=== PATIENT | male | born 1980 | race Caucasian/White ===

== ENCOUNTER 2018-08-30 08:33 | Inpatient (IN) ==
[2018-08-30] MEDS ORDERED: SODIUM CHLORIDE 0.9% 1000ML 500 ML IV ONE (08:47)
[2018-08-30] MEDS ORDERED: CLINDAMYCIN 900 MG in DEXTROSE 5% 50 ML IV ONE (08:47)
[2018-08-30 09:05] LABS: Basophils # (auto) 0.03 K/uL (0-0.2); Basophils % (auto) 0.3 %; Eosinophils # (auto) 0.38 K/uL (0-0.5); Eosinophils % (auto) 4.2 %; Hemoglobin 14.3 g/dL (14.0-18.0); Immature Granulocytes # (auto) 0.02 K/uL (0.00-0.02); Immature Granulocytes % (auto) 0.2 %; Lymphocytes # (auto) 2.49 K/uL (1.2-3.4); Lymphocytes % (auto) 27.7 %; Mean Corpuscular Hgb Conc 36.7 g/dL (32-36); Mean Corpuscular Volume 88.8 fL (80-100); Mean Platelet Volume 8.6 fL (7.4-10.4); Monocytes # (auto) 0.92 K/uL (0.11-0.59); Monocytes % (auto) 10.2 %; Neutrophils # (auto) 5.15 K/uL (1.4-6.5); Neutrophils % (auto) 57.4 %; Platelet Count 241 K/uL (130-400); RDW Coefficient of Variation 12.4 % (11.5-14.5); RDW Standard Deviation 39.5 fL (36.4-46.3); Red Blood Count 4.39 M/uL (4.7-6.1); White Blood Count 8.99 K/uL (4.8-10.8)
[2018-08-30 09:19] LABS: BUN Creatinine Ratio 11.5 (10-20); Calcium 8.9 mg/dl (8.5-10.1); Creatinine Clr Calc Pharmacy 110.1 ml/min; Est GFR (African American) 106.6; Est GFR (Non-African American) 91.9; Potassium 4.1 mmol/L (3.5-5.1)
[2018-08-30] MEDS ORDERED: IOVERSOL 100ml IV PRN (09:46)
--- NOTE | 2018-08-30 10:18 | CT Scan Report ---
CT facial bones w con HISTORY: 38 years-old Male L dental abscess/facial cellulitis acute left-sided facial pain and swell ing COMPARISON: None available TECHNIQUE: Multiple axial CT images of the facial bones were obtained following the intravenous admin istration of 94 mL Optiray 320 IV contrast. A dose lowering technique was used consistent with the pr incipals of SANDIE. FINDINGS: Dental amalgam hardware streak artifact limits dilation of the surrounding tissues. There is a periph erally enhancing multiloculated fluid collection adjacent to the left maxilla measuring 2.2 x 2.3 x 2 .6 cm in AP, transverse and craniocaudal dimensions respectively, image 233 series 4. Mild subcutaneo us stranding about the left maxillary distribution is also noted. No opaque foreign body. The bilater al carotid, submandibular and sublingual glands appear unremarkable. Thyroid is not imaged. The vascu lar structures about the neck appear to be unremarkable. No adenopathy by CT size criteria. 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 Mastoid air cells and middle ear cavities are clear. Mild mucosal thickening about the ethmoid air ce lls. No acute facial bone or calvarial fracture. Mild degenerative changes about the imaged cervical spine with mild disc space narrowing and posterior osteophytic spurring at C5-C6. Multiple dental car ies. Large periapical cyst about the right maxillary first bicuspid with adjacent cortical erosion. L arge dental caries noted about the left maxillary first molar. IMPRESSION: 1. Multifocal odontogenic disease as above includes large caries about the left first maxillary molar . 2. Mild to moderate cellulitis changes about the left maxillary distribution with adjacent multilocul ated abscess measuring up to 2.6 cm. 3. 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 The above report was generated using voice recognition software. It may contain grammatical, syntax o r spelling errors. Electronically signed by: Jose Antonio Fontanez M.D. 08/30/2018 10:17 AM
--- NOTE | 2018-08-30 10:36 | Emergency Department Note ---
History of Present Illness General Chief complaint: Dental/Oral Stated complaint: FACE SWELLING FROM TOOTH ABCESS Time Seen by Provider: 08/30/18 08:38 History of Present Illness Maximum Pain Intensity: 3 38-year-old male who presents to emergency department for evaluation of a dental/facial infection. The patient reports that he has been dealing with an infection for the past 1.5 to 2 weeks. He was initially treated with Augmentin antibiotics without any significant relief of the swelling. The patient reports that when he completed his Augmentin on Thursday, the swelling progressively worsened. He was provided a prescription for clindamycin by an another physician yesterday, and has taken clindamycin without relief of symptoms. He denies headache, sinus congestion, postnasal drip or significant facial pain. He does report chills, but has not checked his temperature at home. He rates his discomfort a 3 out of 10 on initial exam. Home Medications Home Medications Medication Instructions Recorded Confirmed Type clindamycin HCl 300 mg PO Q8H 08/30/18 08/30/18 History naproxen sodium [Aleve] 220 mg PO UD PRN 08/30/18 08/30/18 History Allergies Allergy/AdvReac Type Severity Reaction Status Date / Time No Known Allergies Allergy Unverified 08/30/18 09:38 Past Med/Surg History Medical History History of torn meniscus of left knee History of disruption of medial collateral ligament Obesity (BMI 30.0-34.9) Tobacco use Dental abscess (Acute) Surgical History History of arthroscopy of left knee Family History Other Hypertension Social History Preferred Language: Kittitian Communication Ability: Effective Offset Machine Operator Required: No Beliefs That Will Affect Care: None Current Living Situation: Spouse current occupational status: employed 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 [employer] Other Information That Helps Us Care for You: No Feels Safe at Home: Yes Smoking Status: Current every day smoker Tobacco Type: cigarettes Do You Dip or Chew Tobacco: No Second Hand Exposure: No Tobacco Cessation Education Requested by Patient: No Hx Alcohol Use: Yes (occasionally) Alcohol type: hard liquor Alcohol Intake Frequency Comment: 1-3 drinks weekly Hx Substance Use: Yes substance use type: marijuana Last Used Substance: Hours (ago) Review of Systems 10 system review was performed and was negative except for pertinent positives and negatives as indicated in history of present illness Physical Exam Vital Signs Vital Signs - 24 hr 08/30/18 08:38 08/30/18 09:56 Temperature 36.5 C Temperature Source Oral Sepsis Recent Fever Within 48 Hours No Sepsis New/Unexplained Change in Mental Status No Sepsis Action Taken by Nursing No Action Required Pulse Rate 84 Pulse Rate [Left Finger] 60 Respiratory Rate 18 18 Respiratory Effort / Characteristics Non-Labored Spontaneous Respiratory Depth Normal Respiratory Pattern Regular Blood Pressure 126/93 Blood Pressure [Left Arm] 121/72 Blood Pressure Mean 104 Blood Pressure Mean [Left Arm] 88 Blood Pressure Position Sitting Pulse Oximetry 97 96 Oxygen Delivery Method Room Air Room Air CONSTITUTIONAL: Healthy and well nourished. Alert and oriented X 3. Patient does not appear in any acute distress. HEENT: Patient has notable edema of the left facial region and inferior orbit. He has notable induration and tenderness to palpation over this entire region. Pupils equal, round and reactive. EOMs intact without evidence for entrapment o r discomfort. Examination of the oropharynx shows a badly eroded left maxillary molar. No obvious gingival erythema, fluctuance or pointing noted. No clinical evidence for Kenny's angina or retropharyngeal abscess. NECK: Full active range of motion without discomfort. LYMPHATICS: No cervical chain adenopathy. RESPIRATORY: Clear to auscultation bilaterally with no wheezing, crackles, rhonchi or stridor. CARDIOVASCULAR: Regular rate and rhythm with no murmurs, rubs or gallops. GASTROINTESTINAL: Bowel sounds present in all quadrants. Soft and nontender to palpation without hepatosplenomegaly. MUSCULOSKELETAL: Full range of motion of all joints without discomfort. INTEGUMENTARY: No rash or other significant dermatologic conditions noted. HEMATOLOGIC: No ecchymosis or petechiae. PSYCHIATRIC: Positive affect. NEUROLOGIC: Cranial nerves II-XII grossly intact. No focal neurologic deficits noted. Facial sensations are intact. Course Patient history and physical exam were performed. Nurse's notes were reviewed. Vital signs were reviewed and were normal. Given that the patient's symptoms have progressively worsened, IV access was established, and labs were drawn. The patient was administered clindamycin 900 mg IV infusion, along with a normal saline 1 L bolus. Labs were reviewed to show a mild leukocytosis with left sh ift and bandemia. Remaining electrolytes were otherwise normal. CT of the face with IV contrast shows evidence for a 2.6 cm abscess as discussed in the taker off drying kiln report. The case was further discussed with Dr. Hankins, ED attending physician, who recommended contacting Dr. Mancuso, maxillofacial surgeon circulation representative. Dr. Mancuso recommended hospitalist evaluation, and he would consult with his service to determine if I&D procedure was warranted once he reviews CT imaging. The case was then discussed with the [facility] hospitalist service. Please see dictations for further treatment and final disposition. Administered Medications Clindamycin Phosphate 900 mg/ (Dextrose) 56 mls @ 112 mls/hr IV Q8H JESSICA; Protocol Stop: 09/09/18 07:59 Last Infusion: 08/30/18 18:02 Dose: 0 mls/hr Documented by: [id number] Admin: 08/30/18 17:15 Dose: 112 mls/hr Documented by: [id number] Sodium Chloride (Nss 1000ml) 1,000 mls @ 80 mls/hr IV .[id number] JESSICA Stop: 09/29/18 12:13 Last Admin: 08/30/18 14:01 Dose: 80 mls/hr Documented by: [id number] Ketorolac Tromethamine (Toradol) 30 mg IV Q6H PRN PRN Reason: Pain Stop: 09/04/18 12:55 Last Admin: 08/30/18 13:12 Dose: 30 mg Documented by: [id number] Oxycodone/Acetaminophen (Percocet 7.5/325mg) 1 tab PO Q4H PRN PRN Reason: Moderate Pain Stop: 09/13/18 16:15 Last Admin: 08/30/18 16:30 Dose: 1 tab Documented by: [id number] Discontinued Medications Clindamycin Phosphate 900 mg/ (Dextrose) 56 mls @ 112 mls/hr IV ONE ONE Stop: 08/30/18 09:16 Last Infusion: 08/30/18 09:32 Dose: 0 mls/hr Documented by: [id number] Admin: 08/30/18 09:10 Dose: 112 mls/hr Documented by: [id number] Sodium Chloride (Nss 1000ml) 500 mls @ 999 mls/hr IV .Q31M ONE Stop: 08/30/18 09:17 Last Infusion: 08/30/18 09:33 Dose: 0 mls/hr Documented by: [id number] Admin: 08/30/18 09:10 Dose: 999 mls/hr Documented by: [id number] Ioversol (Optiray 320 100ml) 94 ml IV ONCE PRN PRN Reason: Interaction Checking Stop: 09/03/18 09:45 Last Admin: 08/30/18 09:46 Dose: 94 ml Documented by: [id number] Medical Decision Making Medical Records Attestation: I reviewed the patient's medical records. Home Medications Current Medication List: was personally reviewed by me Laboratory Data Attestation: I reviewed the patient's lab results. Result diagrams: 08/30/18 08:55 08/30/18 08:55 Lab Results 08/30/18 08/30/18 Range/Units 08:55 08:55 WBC 8.99 (4.8-10.8) K/uL RBC 4.39 L (4.7-6.1) M/uL Hgb 14.3 (14.0-18.0) g/dL Hct 39.0 L (42-52) % MCV 88.8 (80-100) fL MCH 32.6 (25-34) pg MCHC 36.7 H (32-36) g/dL RDW Std Deviation 39.5 (36.4-46.3) fL RDW Coeff of Alissa 12.4 (11.5-14.5) % Plt Count 241 (130-400) K/uL MPV 8.6 (7.4-10.4) fL Immature Gran % (Auto) 0.2 % Neut % (Auto) 57.4 % Lymph % (Auto) 27.7 % Porter % (Auto) 10.2 % Eos % (Auto) 4.2 % Baso % (Auto) 0.3 % Immature Gran # (Auto) 0.02 (0.00-0.02) K/uL Neut # (Auto) 5.15 (1.4-6.5) K/uL Lymph # (Auto) 2.49 (1.2-3.4) K/uL Porter # (Auto) 0.92 H (0.11-0.59) K/uL Eos # (Auto) 0.38 (0-0.5) K/uL Baso # (Auto) 0.03 (0-0.2) K/uL Sodium 140 (136-145) mmol/L Potassium 4.1 (3.5-5.1) mmol/L Chloride 109 H (98-107) mmol/L Carbon Dioxide 24 (21-32) mmol/L Anion Gap 7.0 (3-11) BUN 12 (7-18) mg/dl Creatinine 1.04 (0.6-1.4) mg/dl Est Cr Clr Drug Dosing 110.1 ml/min Est GFR ( Amer) 106.6 Est GFR (Non-Af Amer) 91.9 BUN/Creatinine Ratio 11.5 (10-20) Glucose 95 (70-99) mg/dl Calcium 8.9 (8.5-10.1) mg/dl Imaging Data Attestation: I personally reviewed and interpreted this imaging study as follows: My Impression: CT of the facial bones with IV contrast shows evidence for a left subadjacent maxillary abscess as discussed in the following radiologist report, which was also reviewed. Radiologist's Impression: CT facial bones w con HISTORY: 38 years-old Male L dental abscess/facial cellulitis acute left-sided facial pain and swelling COMPARISON: None available TECHNIQUE: Multiple axial CT images of the facial bones were obtained following the intravenous administration of 94 mL Optiray 320 IV contrast. A dose lowering technique was used consistent with the principals of SANDIE. FINDINGS: Dental amalgam hardware streak artifact limits dilation of the surrounding tissues. There is a peripherally enhancing multiloculated fluid collection adjacent to the left maxilla measuring 2.2 x 2.3 x 2.6 cm in AP, transverse and craniocaudal dimensions respectively, image 233 series 4. Mild subcutaneous stranding about the left maxillary distribution is also noted. No opaque foreign body. The bilateral carotid, submandibular and sublingual glands appear unremarkable. Thyroid is not imaged. The vascular structures about the neck appear to be unremarkable. No adenopathy by CT size criteria. 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 Mastoid air cells and middle ear cavities are clear. Mild mucosal thickening about the ethmoid air cells. No acute facial bone or calvarial fracture. Mild degenerative changes about the imaged cervical spine with mild disc space narrowing and posterior osteophytic spurring at C5-C6. Multiple dental caries. Large periapical cyst about the right maxillary first bicuspid with adjacent cortical erosion. Large dental caries noted about the left maxillary first molar. IMPRESSION: 1. Multifocal odontogenic disease as above includes large caries about the left first maxillary molar. 2. Mild to moderate cellulitis changes about the left maxillary distribution with adjacent multiloculated abscess measuring up to 2.6 cm. 3. 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 Blood Pressure Blood Pressure Findings: Normal blood pressure MDM Narrative Patient does have a sizable abscess formation it has not resolved with initial Augmentin antibiotics, and now approximately 36 hours of clindamycin antibiotics. Because the patient has failed outpatient management, I did feel that maxillofacial consultation was warranted. Impression & Plan Dental abscess Discharge Plan Visit Data *Final* Discharge Date/Time: 08/30/18 11:46 Chief Complaint: Dental/Oral Stated Complaint: FACE SWELLING FROM TOOTH ABCESS ED Provider: Paulo Hankins ED Midlevel Provider: Vick Kamara Discharge Problem: Dental abscess Patient Disposition: Admitted As Inpatient Discharge Instructions Interventions: ED Discharge Assessment Last Done: 08/30/18 11:46
--- NOTE | 2018-08-30 10:57 | History & Physical Report ---
Date of Service August 30, 2018 Assessment & Plan (1) Dental abscess: -Admit to [facility] -We will start on clindamycin IV : Failure of outpatient antibiotics with Augmentin x10 days, has completed clindamycin 300 mg p.o. x1 day. -ENT consulted - Dr. Brewer possible drainage later today of abscess -CT face completed showing a 2.6 cm abscess in the left maxillary area -Pain controlled currently, use ibuprofen prn -Patient without leukocytosis, afebrile (2) Tobacco use: -Smoking cessation encouraged, offered nicotine patch however the patient declines. -Patient has been smoking 4 cigarettes to 1/2 pack/day, for approximately 20 years. (3) Obesity (BMI 30.0-34.9): -Diet and exercise to be encouraged upon discharge -BMI of 34.2 (4) DVT prophylaxis: - ambulatory History of Present Illness Primary Care Provider: NO PCP This is a 38 yo male withPMHx of tobacco use x20 years, obesity with a BMI of 34.2 and history of left knee surgery for ACL and MCL tears. Patient presents with a dental abscess which is been ongoing for at least 2 weeks. Patient states that he broke left upper molar off approximately 20 years ago, since then he has had little to no problems with it. Patient did complete one course of antibiotics several years ago however the pain resolved and had no subsequent problems. Patient sought out urgent care approximately 12 days ago where he was given a prescription for Augmentin x10 days and completed the course. After finishing Augmentin pain worsened, therefore patient spoke with a physician who prescribed clindamycin. Patient had 2 days in between antibiotic courses, he has only taken 1 day of clindamycin so far. Denies fevers, sweats, chills. Patient reports he is controlling pain with ibuprofen/Aleve. Pt has not had tooth pulled previously due to lack of insurance. CT of the face reveals a 2.6 cm left maxillary 1st molar abscess. ENT plans to drain the abscess today. 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[employer] Feels Safe at Home: Yes Smoking Status: Current every day smoker Hx Alcohol Use: Yes Alcohol Intake Frequency Comment: 1-3 drinks weekly Review of Systems Review of Systems: Constitutional: No fever, sweats or chills Eyes: + left eye swelling , no diplopia, no worsening or blurred vision ENT: normal hearing, no trouble swallowing, no trouble with neck mobility, + no foul taste Respiratory: No cough, sputum, dyspnea at rest or on exertion Cardiovascular: No chest pain, tightness or palpitations Abdomen: No pain, nausea, vomiting, diarrhea or constipation Musculoskeletal: No joint pain, calf pain, swelling Neurologic: No weakness, numbness/tingling, or balance problems Psychiatric: No anxiety or depression Skin: No rash or itch Physical Exam Physical Exam: General: awake, alert, no apparent distress, no fevers, chills or sweats Head: Normocephalic, atraumatic ENT: PERRL, EOMI, + left upper jaw pain, + edema, + left maxillary 1st molar broken off, mucous membranes moist Chest: Clear to auscultation, on room air, no adventitious breath sounds Cardiac: Regular rate and rhythm, no murmur, no JVD, normal peripheral pulses, good capillary refill Abdominal: NABS x 4 quadrants, soft, nontender to palpation, no rebound, guarding or tenderness Extremities: Normal inspection, no peripheral edema or erythema, calfs nontender to palpation Psych: Normal mood and affect Neuro: AAO x 3, strength intact bilaterally and related 5/5, no motor deficits, speech is clear, no peripheral sensory deficits Results & Data Vital Signs (Past 12 Hours) Vital Signs Temp Pulse Pulse Resp BP BP Pulse Ox 08/30/18 09:56 60 18 121/72 96 08/30/18 08:38 36.5 C 84 18 126/[address] facial bones w con HISTORY: 38 years-old Male L dental abscess/facial cellulitis acute left-sided facial pain and swelling COMPARISON: None available TECHNIQUE: Multiple axial CT images of the facial bones were obtained following the intravenous administration of 94 mL Optiray 320 IV contrast. A dose lowering technique was used consistent with the principals of SANDIE. FINDINGS: Dental amalgam hardware streak artifact limits dilation of the surrounding tissues. There is a peripherally enhancing multiloculated fluid collection adjacent to the left maxilla measuring 2.2 x 2.3 x 2.6 cm in AP, transverse and craniocaudal dimensions respectively, image 233 series 4. Mild subcutaneous stranding about the left maxillary distribution is also noted. No opaque foreign body. The bilateral carotid, submandibular and sublingual glands appear unremarkable. Thyroid is not imaged. The vascular structures about the neck appear to be unremarkable. No adenopathy by CT size criteria. 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 Mastoid air cells and middle ear cavities are clear. Mild mucosal thickening about the ethmoid air cells. No acute facial bone or calvarial fracture. Mild degenerative changes about the imaged cervical spine with mild disc space narrowing and posterior osteophytic spurring at C5-C6. Multiple dental caries. Large periapical cyst about the right maxillary first bicuspid with adjacent cortical erosion. Large dental caries noted about the left maxillary first molar. IMPRESSION: 1. Multifocal odontogenic disease as above includes large caries about the left first maxillary molar. 2. Mild to moderate cellulitis changes about the left maxillary distribution with adjacent multiloculated abscess measuring up to 2.6 cm. 3. 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 The above report was generated using voice recognition software. It may contain grammatical, syntax or spelling errors. Code Status & VTE Plan Code Status Full code - discussed with father at bedside Supervising Physician Co-Signing Physician Notes Patient seen and examined by me. Agree with assessment and plan done by Danette Jovel PA-C. Patient has induration and edema and tenderness around the left maxillary and left orbital area. He has left anterior cervical lymphadenopathy that is tender. He does have a left upper molar that has been previously fractured and looks extensively carious that is probably the source of the infection. There is an abscess noted on CT scan. ENT will be seeing the patient shortly. He will be treated with intravenous clindamycin. He has been admitted for further treatment.
[2018-08-30] MEDS ORDERED: ONDANSETRON INJ 2 MG/ML 2 ML VIAL IV PRN (12:14)
[2018-08-30] MEDS ORDERED: IBUPROFEN 600 MG TAB PO PRN (12:14)
[2018-08-30] MEDS ORDERED: ACETAMINOPHEN 325 MG TAB PO PRN (12:14)
[2018-08-30] MEDS: KETOROLAC 30 MG/ML VIAL IV PRN ×2 (13:12→19:58)
[2018-08-30] MEDS: SODIUM CHLORIDE 0.9% 1000ML 1,000 ML IV SCH (14:01)
--- NOTE | 2018-08-30 16:03 | Surgery Consultation ---
Date of Consultation August 30, 2018 Joaquim is 38 y/o with an infected fractured # 14 and Upper right fractured # 4. The # 14 has caused a severe left facial abscess with obliteration of the left mucobuccal fold and extending into the infraorbital area and lower lid. His PMH is N/C, No allergies or meds He failed an outpatient course of augmentin 875 x 10 days and was placed on Clindamycin w/o any resolutions of the pain and swelling. I reviewed the CT scan and agree with the findings; There is a drainable abscess upper left side as well asa fx # 14. Also--there is a fistula and gingival swelling upper right area from an fx and abscessed # 4. I will be taking Joaquim to OR tomorrow AM and extract the #4 and #14 as well as do an I&D of the acute facial abscess with a General anesthesia. We will keep him on IV antibiotics for at least 24 hours and then decide if he can be treated with oral antibiotics and outpatient follow up. I reviewed the surgery, risks=pain, swelling, infection, bleeding, need for routine dental care and follow up with me as a general dentist. Consent signed, Plan OR tomorrow AM. OK for planned GA and oral surgery procedure We will keep NPO 12 midnight Jarred Mancuso History of Present Illness Attending Physician: Erasto Leiva MD Allergies Allergy/AdvReac Type Severity Reaction Status Date / Time No Known Allergies Allergy Unverified 08/30/18 09:38 Home Medications Home Medications Medication Instructions Recorded Confirmed Type clindamycin HCl 300 mg PO Q8H 08/30/18 08/30/18 History naproxen sodium [Aleve] 220 mg PO UD PRN 08/30/18 08/30/18 History Patient History Medical History History of torn meniscus of left knee History of disruption of medial collateral ligament Obesity (BMI 30.0-34.9) Tobacco use Dental abscess Family History Other Hypertension Social History Preferred Language: Maltese Communication Ability: Effective Business Broker Required: No Beliefs That Will Affect Care: None Current Living Situation: Spouse current occupational status: employed 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[employer] Other Information That Helps Us Care for You: No Feels Safe at Home: Yes Smoking Status: Current every day smoker Tobacco Type: cigarettes Do You Dip or Chew Tobacco: No Second Hand Exposure: No Tobacco Cessation Education Requested by Patient: No Hx Alcohol Use: Yes (occasionally) Alcohol type: hard liquor Alcohol Intake Frequency Comment: 1-3 drinks weekly Hx Substance Use: Yes substance use type: marijuana Last Used Substance: Hours (ago) Results & Data Vital Signs (Past 12 Hours) Vital Signs Temp Pulse Pulse Resp BP BP Pulse Ox 08/30/18 15:41 36.5 C 63 16 119/77 96 08/30/18 12:27 36.7 C 68 16 118/84 96 08/30/18 11:38 63 18 137/81 97 08/30/18 09:56 60 18 121/72 96 08/30/18 08:38 36.5 C 84 18 126/93 97
[2018-08-30] MEDS: OXYCODONE/APAP 7.5/325MG TAB PO PRN ×2 (16:30→22:26)
[2018-08-30] MEDS: CLINDAMYCIN 900 MG in DEXTROSE 5% 50 ML IV SCH (17:15)
[2018-08-31] MEDS: CLINDAMYCIN 900 MG in DEXTROSE 5% 50 ML IV SCH ×4 (00:08→23:26)
[2018-08-31] MEDS ORDERED: MoRPHine SULFATE 2 MG/ML CARP IV STA (00:53)
[2018-08-31] MEDS ORDERED: HYDROmorphone INJ 2 MG/ML SYR/VIAL ONE (01:03)
[2018-08-31] MEDS: SODIUM CHLORIDE 0.9% 1000ML 1,000 ML IV SCH (03:25)
[2018-08-31] MEDS: KETOROLAC 30 MG/ML VIAL IV PRN ×2 (03:58→23:26)
[2018-08-31 07:25] LABS: Hematocrit (blood only) 36.7 % (42-52); Hemoglobin 13.2 g/dL (14.0-18.0); Mean Corpuscular Volume 89.1 fL (80-100); Mean Platelet Volume 8.8 fL (7.4-10.4); Platelet Count 233 K/uL (130-400); RDW Coefficient of Variation 12.4 % (11.5-14.5); RDW Standard Deviation 40.1 fL (36.4-46.3); Red Blood Count 4.12 M/uL (4.7-6.1); White Blood Count 8.91 K/uL (4.8-10.8)
[2018-08-31] MEDS: OXYCODONE/APAP 7.5/325MG TAB PO PRN ×2 (07:28→19:07)
[2018-08-31 07:52] LABS: Albumin Level 3.2 gm/dl (3.4-5.0); BUN Creatinine Ratio 11.2 (10-20); Bilirubin,Total 0.3 mg/dl (0.2-1); Calcium 8.6 mg/dl (8.5-10.1); Creatinine Clr Calc Pharmacy 115.4 ml/min; Est GFR (African American) 113.1; Est GFR (Non-African American) 97.6; Potassium 4.4 mmol/L (3.5-5.1)
[2018-08-31 07:54] LABS: Albumin Globulin Ratio 0.9 (0.9-2); Globulin 3.5 gm/dl (2.5-4.0); Total Protein 6.7 gm/dl (6.4-8.2)
[2018-08-31] MEDS ORDERED: PROPOFOL IV EMULSION 10 MG/ML 20 ML VIAL IV ONE (08:10)
[2018-08-31] MEDS ORDERED: DEXAMETHASONE SOD INJ 4 MG/ML VIAL ONE (08:10)
[2018-08-31] MEDS ORDERED: fentaNYL citrate 100 MCG/2 ML VIAL ONE (08:10)
[2018-08-31] MEDS ORDERED: LIDOCAINE HCL 2% 2 ML VIAL/AMP(20MG/ML) INFIL ONE (08:10)
[2018-08-31] MEDS ORDERED: ONDANSETRON INJ 2 MG/ML 2 ML VIAL ONE (08:10)
[2018-08-31] MEDS ORDERED: MIDAZOLAM HCL 1 MG/ML 2ML VIAL ONE (08:11)
[2018-08-31] MEDS ORDERED: CHLORHEXIDINE GLUCONATE 0.12% 480 ML ONE (09:32)
[2018-08-31] MEDS ORDERED: BUPIVACAINE/EPINEPHRINE 0.5% 1:200,000 1.8 ML CARP ONE (09:34)
--- NOTE | 2018-08-31 09:41 | Anesthesiology Consultation ---
Date of Service August 31, 2018 Assessment & Plan (1) Encounter for pre-operative examination: Chart Review Chart Review: Acceptable Risk for Surgery ASA ASA2 Proposed Anesthesia Anesthesia Type: General Risk / Benefits Reviewed With: PT / POA / Parent / Guardian, Accepts Plan and Informed Consent Obtained History Surgery Operation Date: 08/31/18 08:35 Proposed Procedures p Incision and Drainage General, Teeth #5 and #14 Extraction - Jarred Mancuso, DMD Height/Weight Height: 5 ft 7 in Weight: 98.6 kg Allergies Allergy/AdvReac Type Severity Reaction Status Date / Time No Known Allergies Allergy Unverified 08/30/18 09:38 Medications Home Medications Medication Instructions Recorded Confirmed Last Taken clindamycin HCl 300 mg PO Q8H 08/30/18 08/30/18 08/30/18 naproxen sodium [Aleve] 220 mg PO UD PRN 08/30/18 08/30/18 Unknown Active Medications Generic Name Dose Route Start Last Admin Trade Name Freq PRN Reason Stop Dose Admin Clindamycin Phosphate 900 mg/ 56 mls @ 112 mls/hr 08/30/18 16:00 08/31/18 08:38 Dextrose IV 09/09/18 07:59 Infused Q8H JESSICA Infusion Protocol Sodium Chloride 1,000 mls @ 80 mls/hr 08/30/18 12:14 08/31/18 03:25 Nss 1000ml IV 09/29/18 12:13 80 mls/hr .[id number] JESSICA Administration Ibuprofen 600 mg 08/30/18 12:14 08/30/18 19:01 Motrin PO 09/29/18 12:13 600 mg Q6H PRN Administration Pain Ketorolac Tromethamine 30 mg 08/30/18 12:56 08/31/18 03:58 Toradol IV 09/04/18 12:55 30 mg Q6H PRN Administration Pain Oxycodone/Acetaminophen 1 tab 08/30/18 16:16 08/31/18 07:28 Percocet 7.5/325mg PO 09/13/18 16:15 1 tab Q4H PRN Administration Moderate Pain NPO Date Last Intake of Fluids: 08/30/18 Time Last Intake of Fluids: 23:59 Date Last Intake of Solids: 08/30/18 Time Last Intake of Solids: 23:59 Past Medical History Medical History History of torn meniscus of left knee History of disruption of medial collateral ligament Obesity (BMI 30.0-34.9) Tobacco use Dental abscess (Acute) Exercise / Class Metabolic Activity II 4-5 Yardwork/Stairs/Walk up hill Past Family History Family History Other Hypertension Past Surgical History Surgical History History of arthroscopy of left knee Past Anesthesia History No Hx of Anesthesia Complications and No Family Hx of Anesthesia Complications History of PONV No Hx of PONV and No Hx of Motion Sickness Social History Smoking Status: Current every day smoker tobacco type: cigarettes Do You Dip or Chew Tobacco: No Hx Alcohol Use: Yes (occasionally) Alcohol type: hard liquor alcohol intake frequency: a few times a month Hx Substance Use: Yes substance use type: marijuana Last Used Substance: Hours (ago) Physical Exam Vital Signs Last Vital Signs Temp 97.9 F 08/31/18 07:34 Pulse 65 08/31/18 07:34 Resp 16 08/31/18 07:34 BP 125/75 08/31/18 07:34 Pulse Ox 96 08/31/18 07:34 ENMT Mouth: + chipped teeth Thyromental Distance: > or= 3.5 Finger Breadths Mallampati Class: III Neck normal visual inspection Respiratory normal respiratory effort Auscultation: lungs clear to auscultation bilaterally Cardiovascular Rate/Rhythm: regular rate and regular rhythm
[2018-08-31] MEDS ORDERED: ePHEDrine sulfate 50 MG/ML AMP IV PRN (09:43)
[2018-08-31] MEDS ORDERED: ONDANSETRON INJ 2 MG/ML 2 ML VIAL IV PRN ×2 (09:43→10:50)
[2018-08-31] MEDS ORDERED: fentaNYL citrate 100 MCG/2 ML VIAL IV PRN (09:43)
[2018-08-31] MEDS ORDERED: ATROPINE SULFATE 0.1 MG/ML 10ML SYR IV PRN (09:43)
--- NOTE | 2018-08-31 09:47 | History & Physical Bridge Note ---
Date of Service August 31, 2018 History & Physical Bridge Note I have examined the patient, reviewed the History & Physical and in the interval since the performance of the History & Physical I have noted the following changes of clinical significance: no changes noted
[2018-08-31] MEDS ORDERED: NEOSTIGMINE METHYLSULFATE 5 MG/5 ML SYR ONE (10:20)
[2018-08-31] MEDS ORDERED: ROCURONIUM BROMIDE 10 MG/ML 5 ML VIAL ONE (10:20)
[2018-08-31] MEDS ORDERED: GLYCOPYRROLATE 0.2 MG/ML VIAL ONE (10:20)
--- NOTE | 2018-08-31 10:47 | Post Operative Brief Note ---
Immediate Post Op Note v1 Date of Surgery August 31, 2018 Pre & Post Diagnosis Operation Date: 08/31/18 08:35 Pre-Op Diagnosis: Left Facial Cellulitis, Abscessed Teeth Post-Op Diagnosis: Left Facial Cellulitis, Abscessed Teeth Procedure Operation Date: 08/31/18 08:35 Actual Procedures p Incision and Drainage General, Teeth #5, #14, and #15 Extraction(Not Applicable) - Jarred Mancuso DMD Surgeon Jarred Mancuso DMD Embedded Systems Software Engineer none Estimated Blood Loss 10 Findings Consistent with Post-Op Diagnosis Drains Natanael Drain (1/4 inch)
--- NOTE | 2018-08-31 11:24 | XRay Report ---
XR mandible <4V HISTORY: 38 years-old Male Status Post-Op Surgery AP Mandibular and Jaw View left dental abscess. St atus post surgery. COMPARISON: CT maxillofacial 08/30/2018 TECHNIQUE: 2 views of the mandible FINDINGS: Mild soft tissue prominence about the left mandibular tissues. No acute fracture, dislocation or opaq ue foreign body. Dental amalgam hardware is noted with a left first molar mandibular root canal noted . Unerupted left maxillary third molar. IMPRESSION: Mild soft tissue swelling without acute fracture or foreign body. The above report was generated using voice recognition software. It may contain grammatical, syntax o r spelling errors. Electronically signed by: Jose Antonio Fontanez M.D. 08/31/2018 11:23 AM
[2018-08-31] MEDS ORDERED: KETOROLAC 30 MG/ML VIAL IV SCH (12:00)
--- NOTE | 2018-08-31 12:04 | Anesthesiology Progress Note ---
Date of Service August 31, 2018 Anesthesia Post Procedure Vital Signs Vital Signs: Temp Pulse Pulse Resp BP Pulse Ox 08/31/18 11:35 98.1 F 60 15 104/67 95 08/31/18 11:25 62 16 104/67 96 08/31/18 11:15 57 L 17 108/74 100 08/31/18 11:05 78 17 107/72 97 08/31/18 10:58 97.0 F L 97 H 14 110/77 96 08/31/18 09:44 98.1 F 56 L 18 126/67 98 08/31/18 07:34 97.9 F 65 16 125/75 96 08/30/18 22:55 97.5 F L 89 16 125/71 96 08/30/18 15:41 97.7 F 63 16 119/77 96 08/30/18 12:27 98.1 F 68 16 118/84 96 Pain Intensity Left Face: Pain Intensity: 7 Transfer of Care Handoff Completed per policy Notes Mental Status: alert / awake / arousable and participated in evaluation Patient Amnestic to Procedure: Yes Nausea / Vomiting: adequately controlled Pain: adequately controlled Airway Patency, RR, SpO2: stable & adequate BP & HR: stable & adequate Hydration State: stable & adequate Anesthetic Complications: no major complications apparent and Pt Satisfied with anesthetic care
[2018-08-31] MEDS: D5W AND 1/2NSS + 20MEQ KCL 20 MEQ/1,000 ML BAG IV SCH ×2 (12:20→20:08)
--- NOTE | 2018-08-31 18:29 | Hospitalist Progress Note ---
Date of Service August 31, 2018 Assessment & Plan (1) Dental abscess: Now s/p tooth extraction left and right with drainage/ I&D of abscess on left side of face, francheska drain in place -CT face completed showing a 2.6 cm abscess in the left maxillary area -Patient without leukocytosis, afebrile Failure of outpatient antibiotics with Augmentin x10 days, has completed clindamycin 300 mg p.o. x1 day. -continue clindamycin IV -Appreciate OMFS management-defer post-op care to Dr. Mancuso -pain control with toradol, ibuprofen, tylenol, and percocet prn -clears diet only for now -IVFs for hydration while not taking much by mouth -chlorhexadine mouth rinses bid (2) Corneal abrasion: suspect OD corneal abrasion secondary to likely taping of eyes shut during surgery/subsequent tape removal -should heal nicely in a few days -start erythromycin ointment 6x/day for prophylaxis of infection and ointment will soothe irritation of eye (3) Tobacco use: -Smoking cessation encouraged, offered nicotine patch however the patient declines. -Patient has been smoking 4 cigarettes to 1/2 pack/day, for approximately 20 years. 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 But ever since he opened his eyes after surgery recovery, he has had irritation and a foreign body sensation in his right eye. No blurry vision or photophobia. Notes his right eye is red. No nausea, no headache, no CP or SOB, no abd pain, last BM yesterday Review of Systems Review of Systems: All systems reviewed & are unremarkable except as noted in HPI & below Physical Exam Constitutional: WD/WN, vitals as above Eyes: normal visual jimenez by confrontation, + eyelid abnormality (mild lid edema left eye), + scleral abnormality (OD with scleral injection medially), + anicteric sclerae, PERRL, normal accommodation and EOM intact bilaterally; no conjunctival abnormality, normal light reflex, fluorescein not used and no photophobia ENMT: Mouth: + oropharynx abnormality (left side buccal mucosa with drain in place, gauze, +induration left cheek) sutures in place in left side mouth at site of tooth extraction Neck: trachea midline, no thyromegaly no anterior neck swelling and neck nontender Thyroid: no thyroid mass, no thyroid nodules and thyroid nontender Respiratory: normal respiratory effort, lungs clear to auscultation Cardiovascular: RRR, no murmur, no edema Gastrointestinal (Abdomen): normal bowel sounds, soft, nontender, no hepatosplenomegaly Musculoskeletal: Extremities: extremities normal to inspection; no cyanosis and no clubbing Skin: no rashes, warm and dry Neurologic: moves all extremities and awake; no focal motor deficits Psychiatric: A+Ox3, euthymic affect Results & Data Vital Signs (Past 12 Hours) Vital Signs Temp Pulse Pulse Resp BP Pulse Ox 08/31/18 15:56 36.5 C 69 16 103/63 93 08/31/18 14:43 36.9 C 74 16 109/71 95 08/31/18 13:46 75 16 113/67 98 08/31/18 12:45 55 L 16 107/70 98 08/31/18 12:11 61 16 109/71 97 08/31/18 11:45 37.0 C 64 16 110/68 93 08/31/18 11:35 36.7 C 60 15 104/67 95 08/31/18 11:25 62 16 104/67 96 08/31/18 11:15 57 L 17 108/74 100 08/31/18 11:05 78 17 107/72 97 08/31/18 10:58 36.1 C L 97 H 14 110/77 96 08/31/18 09:44 36.7 C 56 L 18 126/67 98 08/31/18 07:34 36.6 C 65 16 125/75 96 Laboratory Results 08/31/18 08/31/18 Range/Units 07:08 07:08 WBC 8.91 (4.8-10.8) K/uL RBC 4.12 L (4.7-6.1) M/uL Hgb 13.2 L (14.0-18.0) g/dL Hct 36.7 L (42-52) % MCV 89.1 (80-100) fL MCH 32.0 (25-34) pg MCHC 36.0 (32-36) g/dL RDW Std Deviation 40.1 (36.4-46.3) fL RDW Coeff of Alissa 12.4 (11.5-14.5) % Plt Count 233 (130-400) K/uL MPV 8.8 (7.4-10.4) fL Sodium 142 (136-145) mmol/L Potassium 4.4 (3.5-5.1) mmol/L Chloride 110 H (98-107) mmol/L Carbon Dioxide 26 (21-32) mmol/L Anion Gap 6.0 (3-11) BUN 11 (7-18) mg/dl Creatinine 0.99 (0.6-1.4) mg/dl Est Cr Clr Drug Dosing 115.4 ml/min Est GFR ( Amer) 113.1 Est GFR (Non-Af Amer) 97.6 BUN/Creatinine Ratio 11.2 (10-20) Glucose 98 (70-99) mg/dl Calcium 8.6 (8.5-10.1) mg/dl Total Bilirubin 0.3 (0.2-1) mg/dl AST 10 L (15-37) U/L ALT 27 (12-78) U/L Alkaline Phosphatase 66 (45-117) U/L Total Protein 6.7 (6.4-8.2) gm/dl Albumin 3.2 L (3.4-5.0) gm/dl Globulin 3.5 (2.5-4.0) gm/dl Albumin/Globulin Ratio 0.9 (0.9-2)
[2018-08-31] MEDS: ERYTHROMYCIN OP OINT 5 MG/GM 3.5 GM TUBE OP SCH (19:21)
[2018-08-31] MEDS: CHLORHEXIDINE GLUCONATE 0.12% 480 ML MT SCH (20:09)
[2018-09-01] MEDS: D5W AND 1/2NSS + 20MEQ KCL 20 MEQ/1,000 ML BAG IV SCH ×2 (04:19→13:34)
[2018-09-01] MEDS: ERYTHROMYCIN OP OINT 5 MG/GM 3.5 GM TUBE OP SCH ×3 (05:44→11:55)
[2018-09-01 07:25] LABS: Hematocrit (blood only) 35.4 % (42-52); Hemoglobin 12.7 g/dL (14.0-18.0); Mean Corpuscular Hgb Conc 35.9 g/dL (32-36); Mean Corpuscular Volume 89.4 fL (80-100); Mean Platelet Volume 8.9 fL (7.4-10.4); Platelet Count 258 K/uL (130-400); RDW Coefficient of Variation 12.3 % (11.5-14.5); Red Blood Count 3.96 M/uL (4.7-6.1); White Blood Count 9.66 K/uL (4.8-10.8)
[2018-09-01 07:56] LABS: Albumin Level 3.1 gm/dl (3.4-5.0); Calcium 8.9 mg/dl (8.5-10.1); Creatinine Clr Calc Pharmacy 117.8 ml/min; Est GFR (African American) 115.9; Potassium 4.3 mmol/L (3.5-5.1)
[2018-09-01 07:58] LABS: Albumin Globulin Ratio 0.8 (0.9-2); Bilirubin,Total 0.3 mg/dl (0.2-1); Globulin 3.9 gm/dl (2.5-4.0)
[2018-09-01] MEDS: CLINDAMYCIN 900 MG in DEXTROSE 5% 50 ML IV SCH (08:31)
[2018-09-01] MEDS: CHLORHEXIDINE GLUCONATE 0.12% 480 ML MT SCH (08:33)
--- NOTE | 2018-09-01 11:14 | Surgery Progress Note ---
Date of Service September 01, 2018 Subjective Doing very well today Swelling down good drainage--I removed the drain Inst given to call my office for follow up next week Suggest antibiotics and pain meds Reviewed diet, home care, follow up , need for dental care follow up Overall I am very pleased with his progress and resolution of the acute upper left abscess OK for D/C today Results & Data Vital Signs (Past 12 Hours) Vital Signs Temp Pulse Pulse Resp BP Pulse Ox 09/01/18 07:40 36.6 C 82 20 110/80 98 09/01/18 02:45 36.5 C 71 16 108/64 95 08/31/18 23:14 36.7 C 77 16 114/66 96
--- NOTE | 2018-09-01 14:05 | Discharge Summary ---
Date of Service September 01, 2018 Admission HPI Per Admitting Provider This is a 38 yo male withPMHx of tobacco use x20 years, obesity with a BMI of 34.2 and history of left knee surgery for ACL and MCL tears. Patient presents with a dental abscess which is been ongoing for at least 2 weeks. Patient states that he broke left upper molar off approximately 20 years ago, since then he has had little to no problems with it. Patient did complete one course of antibiotics several years ago however the pain resolved and had no subsequent problems. Patient sought out urgent care approximately 12 days ago where he was given a prescription for Augmentin x10 days and completed the course. After finishing Augmentin pain worsened, therefore patient spoke with a physician who prescribed clindamycin. Patient had 2 days in between antibiotic courses, he has only taken 1 day of clindamycin so far. Denies fevers, sweats, chills. Patient reports he is controlling pain with ibuprofen/Aleve. Pt has not had tooth pulled previously due to lack of insurance. CT of the face reveals a 2.6 cm left maxillary 1st molar abscess. ENT plans to drain the abscess today. Principal Diagnosis Dental abscess/facial abscess and cellulitis Discharge Exam Constitutional WD/WN, vitals as above Eyes normal visual jimenez by confrontation, + scleral abnormality (OD with minimal scleral injection medially improved from yesterday), + anicteric sclerae and EOM intact bilaterally; no conjunctival abnormality ENMT Mouth: + oropharynx abnormality (left side buccal mucosa with drain removed, sutures in place at multiple sites of tooth extraction, left cheek much less ind urated) Neck trachea midline, no thyromegaly no anterior neck swelling and neck nontender Thyroid: no thyroid mass, no thyroid nodules and thyroid nontender Respiratory normal respiratory effort, lungs clear to auscultation Cardiovascular RRR, no murmur, no edema Gastrointestinal (Abdomen) normal bowel sounds, soft, nontender, no hepatosplenomegaly Musculoskeletal Extremities: extremities normal to inspection; no cyanosis and no clubbing Skin no rashes, warm and dry Neurologic moves all extremities and awake; no focal motor deficits Psychiatric A+Ox3, euthymic affect Discharge Data Allergies Allergy/AdvReac Type Severity Reaction Status Date / Time No Known Allergies Allergy Unverified 08/30/18 09:38 Consultations Oromaxillofacial Surgery Procedures Performed Operation Date: 08/31/18 08:35 Actual Procedures p Incision and Drainage General,(Not Applicable) - Jarred Mancuso DMD s Teeth #5, #14, and #15 Extraction(Not Applicable) - Jarred Mancuso DMD Ordered Studies 08/30/18 08:47 CT facial bones w con Stat Hospital Course (1) Dental abscess: Now s/p tooth extraction left and right with drainage/ I&D of abscess on left side of face, drain removed and abscess significantly reduced in size status post surgery on postop day 1 -CT face completed showing a 2.6 cm abscess in the left maxillary area upon admission -Patient without leukocytosis, afebrile, doing very well Received clindamycin IV here and status post incision and drainage as per OMFS -Stable for discharge home and will complete the 10-day course of clindamycin that he Yevgeniy has at home -Can take naproxen as needed for pain at home -Advance to soft diet -chlorhexadine mouth rinses bid -Follow-up with OMFS in the office within 1 week (2) Corneal abrasion: suspect OD corneal abrasion secondary to likely taping of eyes shut during surgery/subsequent tape removal-much improved today with 24 hours of erythromycin ointment -should heal nicely in a few days -Continue erythromycin ointment 6x/day for prophylaxis of infection and ointment will soothe irritation of eye (3) Tobacco use: -Smoking cessation encouraged, offered nicotine patch however the patient declines. -Patient has been smoking 4 cigarettes to 1/2 pack/day, for approximately 20 years. 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 Mancuso) Discharge Plan Discharge Items Patient Disposition: Home - Self-Care Reason For Visit: DENTAL ABSCESS Discharge Diagnosis: Dental/facial abscess Condition: Good Discharge Goals: Decrease discomfort, Diagnostic testing, Improve disease control, Learn about illness and Therapeutic intervention Activity: Resume your previous activity Lifting: Gradually increase as tolerated Bathing: No limitations Exercise/Sports: Gradually increase as tolerated Driving/Machine Use: No limitations Non-emergency contact: Primary Care Provider and Surgeon Call non-emergency contact if: you have any medication questions, your symptoms worsen, your pain is not controlled, your pain is worsening, your pain is unusual for you, your pain is concerning for you, you have a fever and your temperature is above 101 Follow-up/Referrals: PCP,NO [Primary Care Provider] - Diet: Regular Diet Texture: Dental soft (bite-sized) Addtl Provider Instructions: Please finish out the course of antibiotics you are ready have at home and you can take Aleve or ibuprofen, as well as Tylenol as needed for pain. Please follow-up with a primary care physician within 1 to 2 weeks after discharge Please follow-up with Dr. Mancuso as he directed. You can use warm compresses to the area as he directed as well. Prescriptions: New chlorhexidine gluconate 0.12 % Mouthwash 15 ml MT BID Qty: 1 RF: 0 erythromycin 5 mg/gram (0.5 %) ointment 1 appln OP 5XD Qty: 1 RF: 0 Continued clindamycin HCl 300 mg capsule 300 mg PO Q8H 9 Days Qty: 0 RF: 0 Changed naproxen sodium [Aleve] 220 mg Tablet 220 mg PO BID PRN (Reason: Pain) Qty: 0 RF: 0 Stand-Alone Forms: [facility] Discharge Orders: Discharge Order (Routine); Ordered 09/01/18 Ordered By: Renetta Ortiz Admission Data Admit Date/Time: 08/30/18 10:57 Attending Provider: Renetta Ortiz Admit Provider: Erasto Leiva Primary Care Provider: PCP,NO Other Providers: Erasto Leiva ; Jarred Mancuso Service: Medical Other Pending Studies at Discharge: Yes Studies:: Final Wound culture from abscess
--- NOTE | 2018-09-02 09:24 | Operative Report ---
DATE OF OPERATION: 08/31/2018 ADMITTING DIAGNOSES: Acute left facial cellulitis and infraorbital cellulitis, infected and fractured maxillary left molar teeth. POSTOPERATIVE DIAGNOSES: Acute left facial cellulitis and infraorbital cellulitis, infected and fractured maxillary left molar teeth. OPERATION: Incision and drainage of acute facial cellulitis involving the infraorbital and left buccal mucosa and surgical removal of fractured carious teeth number 14 and 15 as well as infected tooth number 5. DESCRIPTION OF PROCEDURE: After this patient was cleared to undergo general anesthesia, he is brought to the Operating Room and placed under general anesthesia via an orotracheal intubation. After adequate anesthesia was obtained, the patient was prepped and draped in the usual manner for removal of infected teeth as well as doing an incision and drainage. Once the patient was anesthetized, a timeout was taken to ensure that we indeed had the appropriate patient by the name of Jarek Persaud and that we had the proper equipment and his antibiotics were being given and all of the instruments and positioning was correct. Once this was agreed upon, the operation began. The facial area was prepped in the usual manner. Sterile dressings were applied. At this time, an oropharyngeal throat pack was placed, the oral cavity was irrigated and suctioned dried with Peridex mouth rinse. The anesthetic tube was positioned and a bite block was placed to keep the mouth open. Gauze pressure packs were now placed. I gave local anesthesia on the palatal aspect and on the facial aspect of the right side, but I did not give any local anesthesia in the swollen mucobuccal fold of the left side. With the use of a 15 blade, I made an incision in the cheek mucosa and was able to drain copious amounts of purulent material from the infratemporal fossa, the mucobuccal fold as well as the inferior orbital facial space plane. At this time, I used a periosteal elevator and reflected the mucoperiosteal tissue around teeth number 14 and 15. I then used a rongeur and removed some of the necrotic bone around the teeth. The tissue was very swollen and very boggy as a result of the chronic infection. Nevertheless, with the use of elevators and dental forceps, I was able to remove the fractured teeth those being number 14 and 15. Great care was taken to avoid any injury to the maxillary sinus, which was above. I now used a periosteal elevator and I was able to tunnel up along the facial aspects of tooth number 14 and 15 and another loculation of pus and more pus extruded. At this time, we obtained cultures for both aerobic and anaerobic bacterial culture and sensitivity. At this time, a hemostat was placed on the lateral wall of the maxilla and I was able to slide superiorly with my finger on the inferior rim and opened up the hemostat a number of times and broke up any more loculations. At this time, I could definitely see an improvement in the facial swelling underneath the eye and in the infratemporal area. At this time, I smoothed down the bone and placed a large Natanael drain laterally against the maxilla as well as another drain in the stab incision in the cheek mucosa. The drains were sutured in with a 2-0 chromic suture. I then closed the mucoperiosteal tissue involving the tooth number 14 and 15 and good closure was obtained. Hemostasis was achieved and good drainage was also achieved. At this time, I removed the oropharyngeal throat pack. I suctioned the throat out, put more gauze in the mouth and put a gauze pressured pack on the left side. I turned my attention now to the upper right side in the tooth number 5 area. There was a fractured premolar tooth with a draining fistula. This tooth was removed after the mucoperiosteal flap was reflected, some bone around the height of contour was removed to enable the tooth to be removed without trauma to the sinus. The tooth was now luxated out of the socket. The socket was curettaged and then the area was sutured closed with the use of a 2-0 chromic suture. At this time, the oral cavity was irrigated and suctioned dry. The oropharyngeal throat pack and all gauze pressure dressings were removed. I allowed the patient to recover in the usual manner and he then was transferred to the Anesthesia Department. At this time, the patient emerged from the anesthesia. He was extubated. I then put gauze pressure packs in his mouth. He was escorted by being fully monitored to the Recovery Room where he was breathing in satisfactory condition with all vital signs stable. In the Recovery Room, I evaluated him. I replaced the packing. His bleeding was controlled. The drains were working well and my plan was to have him transferred back to the third floor for the remainder of his postoperative care. I discussed the case with the hospitalist as well as the hospitalist LAVERNE and we will maintain the patient in the hospital for at least another 24 hours before sending him home on oral antibiotics, pain medication and appointment for followup with my office. ESTIMATED BLOOD LOSS: Probably no more than 10 mL. OPERATING TIME: Approximately 45 minutes. OPERATION: Complex incision and drainage of acute left facial cellulitis and surgical removal of teeth numbers 14, 15 and number 5. I attest to the content of the Intraoperative Record and any orders documented therein. Any exception s are noted below.
== END 2018-09-01 14:20 | disposition home or self-care (01) | DRG 137 ==
LOC: ED 08:33 → SUATTDRO 10:57 → 3N 10:57